=== PATIENT | male | born 1990 | race Caucasian/White ===

== ENCOUNTER 2017-12-04 06:55 | Day surgery (SDC) | payer BC, MEDICAID ==
[~2017-12-04 06:55] MED LIST: Buffered Lidocaine 0.9% SYRIN* 5 ML/SYR SYRINGE INTRADERM ONE; Dexamethasone IV* 4 MG/ML 1 ML (4 MG) IV SLOW PU ONE; Famotidine IV* 10 MG/ML 2 ML (20 mg) IV ONE
[2017-12-04] MEDS ORDERED: ceFAZolin 2 GM PREMIX (*) 2 GM/50 ML BAG IVPB ONE (07:32)
[2017-12-04] MEDS ORDERED: Dexamethasone IV* 4 MG/ML 1 ML (4 MG) ONE (07:39)
[2017-12-04] MEDS ORDERED: Famotidine IV* 10 MG/ML 2 ML (20 mg) ONE (07:39)
[2017-12-04] MEDS ORDERED: Midazolam* 1 MG/ML 2 ML VIAL (2 MG) ONE (07:54)
[2017-12-04] MEDS ORDERED: fentaNYL* 50 MCG/ML 2 ML VIAL (100 MCG VIAL) ONE (07:54)
[2017-12-04] MEDS ORDERED: Bupivacaine 0.5% SDV PF* 30ML VIAL ONE (08:08)
[2017-12-04] MEDS ORDERED: fentaNYL* 50 MCG/ML 2 ML VIAL (100 MCG VIAL) IV PRN (08:16)
[2017-12-04] MEDS ORDERED: Naloxone* 0.4 MG/ML 1 ML VIAL IV PRN (08:16)
[2017-12-04] MEDS ORDERED: Ondansetron ODT TAB* 4 MG PO PRN (08:16)
[2017-12-04] MEDS ORDERED: Propofol* 10 MG/ML 20 ML BTL IV PUSH ONE (08:22)
[2017-12-04 10:03] VITALS: BP 133/81
[2017-12-04] MEDS ORDERED: Metoclopramide IV* 5 MG/ML 2 ML VIAL ONE (10:04)
[2017-12-04] MEDS ORDERED: Ketorolac INJ* 30 MG/ML 1 ML VIAL ONE (10:04)
--- NOTE | 2017-12-04 11:06 | OP ---
OPERATIVE REPORT: DATE OF OPERATION: 12/04/17 - AARON DATE OF : 89 SURGEON: Alvin Becerril MD DOMESTIC MAID: NICHOLAS Olguin An manufacturing assistant was needed for the procedure to aid in positioning of the arm and retraction. ANESTHESIOLOGIST: Gokul Olivera MD ANESTHESIA: General. PRE-OP DIAGNOSIS: Left ulnar nerve compression at the elbow. 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 OPERATIVE PROCEDURE: Left ulnar nerve decompression at the elbow with excision of anconeus epitrochlearis muscle. INDICATIONS: Nic is 27. He has really quite severe numbness and tingling in the ring and small fingers. Electrodiagnostics confirmed changes at the elbow. He did not have a lot of clinical signs of irritation at the wrist. We had talked about risks and benefits including a risk that he will still have nerve symptoms after surgery, risk of nerve injury, risk of neuritis, risk of subluxation of the nerve, infection, hematoma, and other things. He and his parents both understood these and wanted to proceed. ESTIMATED BLOOD LOSS: 2 mL. COMPLICATIONS: None. FINDINGS: See above and below. DESCRIPTION OF PROCEDURE: Nic was seen in the preoperative area. The correct side, site, and procedure were identified. We came back to the operating room. Anesthesia was induced. The arm was prepped and draped in the usual manner and a time-out was performed. I exsanguinated the arm with Esmarch and the tourniquet was inflated to 250 mmHg. I then made a curvilinear incision over the posteromedial elbow with the arm abducted and externally rotated. Full-thickness flaps were carried down. Care was taken not to injure the medial antebrachial cutaneous nerve. The decompression was begun just proximal to Jacobo's ligament and this was released up proximally past the arcade of Hooper with the use of an appendiceal retractor for visualization. I then came distally and noted the anconeus epitrochlearis muscle. This was excised in its entirety. The deep subfascial layer to that muscle and the Jacobo's ligament was then released. This was where the nerve was compressed. I went ahead and completed the release there. I then released the superficial fascia over the 2 ends of the FCU; I split the 2 ends of the FCU and released the subfascial layer. Once there was absolutely no compression on the nerve, we flexed and extended the elbow. There was no subluxation or instability of the nerve. The area was irrigated out. Hemostasis was obtained with a Bovie. Skin and subcutaneous tissue was reapproximated with 3-0 Vicryl suture. The skin was closed with 3-0 Monocryl and Steri-Strips. The area was infiltrated with 0.5% plain Marcaine. The wounds were dressed appropriately. The tourniquet was deflated. The patient was taken to the recovery room in stable condition. Tourniquet was used to 250 mmHg throughout the case. [id number] #: [id number]
== END 2017-12-04 10:19 | disposition home or self-care (01) ==
LOC: OREAST 06:55
PROVIDERS: ATTEND Orthopaedic Surgery Hand Surgery
DX: G56.22 Lesion of ulnar nerve, left upper limb (principal); Z68.30 Body mass index [BMI] 30.0-30.9, adult; F31.9 Bipolar disorder, unspecified; J30.89 Other allergic rhinitis
CPT/HCPCS: J0690; J1100; J1885; J2250; J2704; J2765; J3010